=== PATIENT | male | born 2000 | race Two or more races ===

== ENCOUNTER 2021-02-10 15:24 | Emergency (ER) | payer SELFPAY ==
[~2021-02-10] VITALS: Ht 172.7 cm; Wt 83.5 kg
[2021-02-10 15:25] VITALS: BP 137/86
== END 2021-02-10 20:05 | disposition left against medical advice (07) ==
LOC: ER 15:26
DX: T23.201A Burn of second degree of right hand, unspecified site, initial encounter (principal); Z53.21 Procedure and treatment not carried out due to patient leaving prior to being seen by health care provider; X58.XXXA Exposure to other specified factors, initial encounter; Y93.89 Activity, other specified; Y92.89 Other specified places as the place of occurrence of the external cause; Y99.8 Other external cause status

== ENCOUNTER 2021-02-10 21:15 | Emergency (ER) | payer SELFPAY ==
[~2021-02-10] VITALS: Ht 172.7 cm; Wt 83.5 kg
[2021-02-10 21:16] VITALS: BP 133/89
== END 2021-02-11 04:54 | disposition left against medical advice (07) ==
LOC: ER 21:18
DX: S61.001A Unspecified open wound of right thumb without damage to nail, initial encounter (principal); Z53.21 Procedure and treatment not carried out due to patient leaving prior to being seen by health care provider; X58.XXXA Exposure to other specified factors, initial encounter; Y93.89 Activity, other specified; Y92.89 Other specified places as the place of occurrence of the external cause; Y99.8 Other external cause status